=== PATIENT | female | born 1950 | race African-American/Black ===

== ENCOUNTER 2018-06-07 18:38 | Emergency (ER) | payer MEDICARE, MEDICAID ==
[~2018-06-07] VITALS: Ht 165.1 cm; Wt 68.0 kg
[~2018-06-07 18:38] MED LIST: ALBU18HF2 IH; AMLO10TA80 MT; ASA5EC MT; ATOR-2 MT; ATOR80TA PO; BIC15 PO; CHOL200010 MT; CITR473S4 PO; CLOP75TA33 PO; EMTR1TAB13 MT; HYDR-519 PO; LISI-186 PO; OLAN10TA19 MT; PREG75CA PO; ZET10 PO
[2018-06-07] MEDS ORDERED: ONDANSETRON HCL 4MG/2ML INJ IV STA (20:09)
[2018-06-07] MEDS ORDERED: MORPHINE SULFATE 4 MG/ML CPJ (NOT FOR IM USE) IV STA (20:09)
[2018-06-07] MEDS ORDERED: MORPHINE SULFATE 10 MG/ML CPJ IV STA (20:36)
[2018-06-07 21:12] LABS: BASOPHILS % 0.6 % (0.0-2.0); EOSINOPHILS % 0.5 % (0.0-5.0); HEMATOCRIT. 36.1 % (36.0-48.0); HEMOGLOBIN. 11.9 g/dL (12.0-16.0); LYMPHOCYTES % 30.9 % (20.0-50.0); MEAN CORPUSCULAR HEMOGLOBIN 32.5 pg (28.0-32.0); MEAN CORPUSCULAR VOLUME 98.9 fL (81.0-99.0); MONOCYTES % 5.3 % (2.0-8.0); NEUTROPHILS % 62.7 % (40.0-76.0); PLATELET 245 x1000/uL (130-400); RED BLOOD CELL COUNT 3.65 mill/uL (4.2-5.4); RED CELL DISTRIBUTION WIDTH 13.7 % (11.6-14.6)
[2018-06-07 21:19] LABS: CHLORIDE 109 mEq/L (98-107)
[2018-06-07] MEDS ORDERED: HYDROCODONE/ACETAMINOPHEN 10/325MG TABLET PO ONE (22:15)
[2018-06-07 23:46] VITALS: BP 155/65
== END 2018-06-07 23:46 | disposition home or self-care (01) ==
LOC: ER 18:38
DX: R51 Headache (principal); I10 Essential (primary) hypertension; J45.909 Unspecified asthma, uncomplicated; Z86.73 Personal history of transient ischemic attack (TIA), and cerebral infarction without residual deficits; Z79.899 Other long term (current) drug therapy
CPT/HCPCS: 36415; 70450; 80053; 83605; 84145; 85025; 87040; 96374; 96375; 99284; J2270; J2405

== ENCOUNTER 2018-11-02 15:09 | Emergency (ER) | payer MEDICARE, MEDICAID ==
[~2018-11-02] VITALS: Ht 162.6 cm; Wt 55.0 kg
[2018-11-02] MEDS ORDERED: SODIUM CHLORIDE 0.9% 1,000 ML IV ONE (15:19)
[2018-11-02 15:49] LABS: BASOPHILS % 1.4 % (0.0-2.0); EOSINOPHILS % 1.4 % (0.0-5.0); HEMATOCRIT. 35.2 % (36.0-48.0); HEMOGLOBIN. 11.7 g/dL (12.0-16.0); MEAN CORPUSCULAR HEMOGLOBIN 31.7 pg (28.0-32.0); MEAN CORPUSCULAR VOLUME 95.1 fL (81.0-99.0); MEAN PLATELET VOLUME 7.9 fl (7.4-10.4); MONOCYTES % 7.2 % (2.0-8.0); PLATELET 251 x1000/uL (130-400); RED CELL DISTRIBUTION WIDTH 15.5 % (11.6-14.6)
[2018-11-02 16:04] LABS: CHLORIDE 113 mEq/L (98-107)
[2018-11-02 17:38] VITALS: BP 136/80
[2018-11-02] MEDS ORDERED: ACETAMINOPHEN 500MG TABLET PO ONE (17:45)
== END 2018-11-02 18:21 | disposition home or self-care (01) ==
LOC: ER 15:09 → CANBEDREQ 17:43 → ER 18:21
DX: R51 Headache (principal); I10 Essential (primary) hypertension; E78.00 Pure hypercholesterolemia, unspecified; J45.909 Unspecified asthma, uncomplicated; Z86.73 Personal history of transient ischemic attack (TIA), and cerebral infarction without residual deficits; Z79.82 Long term (current) use of aspirin; Z79.899 Other long term (current) drug therapy
CPT/HCPCS: 36415; 70450; 71045; 80053; 83605; 83880; 84484; 85025; 85610; 93005; 99284; J7030

== ENCOUNTER 2021-02-19 02:18 | Emergency (ER) | payer MEDICARE, MEDICAID ==
[~2021-02-19] VITALS: Ht 167.6 cm; Wt 64.0 kg
[~2021-02-19 02:18] MED LIST changes: -ASA5EC MT; +ASPI-867 MT; +EZET10TA13 PO; -ZET10 PO
[2021-02-19] MEDS ORDERED: LIDOCAINE HCL/PF 1% 10 MG/ML 5ML VIAL INFIL ONE (04:15)
[2021-02-19 04:28] VITALS: BP 108/46
[2021-02-19] MEDS ORDERED: HYDROCODONE/ACETAMINOPHEN 5/325MG TABLET PO ONE (04:30)
[2021-02-19] MEDS ORDERED: LIDO30CR19 TP (05:08)
[2021-02-19] MEDS ORDERED: DOCU-138 MT (05:08)
[2021-02-19] MEDS ORDERED: HYDR26CR2 TP (05:08)
[2021-02-19] MEDS ORDERED: HYDR-4001 MT (05:09)
== END 2021-02-19 05:56 | disposition home or self-care (01) ==
LOC: ER 02:18
DX: K64.5 Perianal venous thrombosis (principal); I10 Essential (primary) hypertension; J45.909 Unspecified asthma, uncomplicated; Z79.899 Other long term (current) drug therapy; Z79.82 Long term (current) use of aspirin
CPT/HCPCS: 10060; 99283; J3490

== ENCOUNTER 2022-08-16 09:27 | Emergency (ER) | payer OTHER, MEDICAID ==
[~2022-08-16] VITALS: Ht 160 cm; Wt 73.0 kg
[~2022-08-16 09:27] MED LIST changes: +DOCU-138 MT; +HYDR-4001 MT; +HYDR26CR2 TP; +LIDO30CR19 TP; -OLAN10TA19 MT; +OLAN10TA72 MT
[2022-08-16 09:41] VITALS: BP 136/56
[2022-08-16 12:54] LABS: HEMATOCRIT. 45.1 % (36.0-48.0); HEMOGLOBIN. 15.1 g/dL (12.0-16.0); LYMPHOCYTES % 33.5 % (20.0-50.0); MEAN CORPUSCULAR HEMOGLOBIN 33.1 pg (28.0-32.0); MEAN CORPUSCULAR VOLUME 98.6 fL (81.0-99.0); MEAN PLATELET VOLUME 7.6 fl (7.4-10.4); MONOCYTES % 5.9 % (2.0-8.0); NEUTROPHILS % 58.6 % (40.0-76.0); PLATELET 252 x1000/uL (130-400); RED BLOOD CELL COUNT 4.58 mill/uL (4.2-5.4); RED CELL DISTRIBUTION WIDTH 13.4 % (11.6-14.6)
[2022-08-16 13:01] LABS: CHLORIDE 107 mEq/L (98-107)
[2022-08-16] MEDS ORDERED: ACETAMINOPHEN 325MG TABLET PO ONE (14:45)
[2022-08-16] MEDS ORDERED: CYCL5TAB MT (16:07)
[2022-08-16] MEDS ORDERED: TOPUD MT (16:07)
== END 2022-08-16 16:30 | disposition home or self-care (01) ==
LOC: ER 09:27
DX: R51.9 Headache, unspecified (principal); I10 Essential (primary) hypertension; J45.909 Unspecified asthma, uncomplicated; Z79.899 Other long term (current) drug therapy
CPT/HCPCS: 36415; 70480; 71045; 80053; 85025; 99285

== ENCOUNTER 2023-06-09 10:06 | Emergency (ER) | payer OTHER, MEDICAID ==
[~2023-06-09] VITALS: Ht 165.1 cm; Wt 60.0 kg
[~2023-06-09 10:06] MED LIST changes: +CYCL5TAB MT; -EZET10TA13 PO; +EZET10TA81 PO; +TOPUD MT
[2023-06-09 10:14] VITALS: RESP 16; O2SAT 100
[2023-06-09 11:00] VITALS: TEMP 98.9
[2023-06-09] MEDS ORDERED: ACETAMINOPHEN 325MG TABLET PO ONE (11:00)
[2023-06-09] MEDS ORDERED: CLONIDINE 0.1MG TABLET PO ONE (11:00)
[2023-06-09 12:05] VITALS: BP 188/70; PULSE 63
== END 2023-06-09 14:04 | disposition home or self-care (01) ==
LOC: ER 10:21
DX: R51.9 Headache, unspecified (principal); I10 Essential (primary) hypertension; J45.909 Unspecified asthma, uncomplicated; E78.00 Pure hypercholesterolemia, unspecified; Z79.899 Other long term (current) drug therapy; Z86.73 Personal history of transient ischemic attack (TIA), and cerebral infarction without residual deficits
CPT/HCPCS: 99284

== ENCOUNTER 2023-11-21 12:19 | Emergency (ER) | payer MEDICAID, MEDICARE, OTHER ==
[~2023-11-21] VITALS: Ht 167.6 cm; Wt 82.0 kg
[2023-11-21 13:14] VITALS: O2SAT 98
[2023-11-21] MEDS: HYDROCODONE/ACETAMINOPHEN 5/325MG TABLET PO ONE (18:05)
[2023-11-21] MEDS ORDERED: LIDO1ADH23 TP (19:20)
[2023-11-21] MEDS ORDERED: HYDR-4001 MT (19:20)
[2023-11-21 19:55] VITALS: BP 103/81; PULSE 85; RESP 18; TEMP 98.6
== END 2023-11-21 19:55 | disposition home or self-care (01) ==
LOC: ER 12:19
DX: S46.911A Strain of unspecified muscle, fascia and tendon at shoulder and upper arm level, right arm, initial encounter (principal); E78.00 Pure hypercholesterolemia, unspecified; J45.909 Unspecified asthma, uncomplicated; I10 Essential (primary) hypertension; Z86.73 Personal history of transient ischemic attack (TIA), and cerebral infarction without residual deficits; Z79.899 Other long term (current) drug therapy; X58.XXXA Exposure to other specified factors, initial encounter; Y93.89 Activity, other specified; Y92.89 Other specified places as the place of occurrence of the external cause; Y99.8 Other external cause status
CPT/HCPCS: 73030; 93971; 99284

== ENCOUNTER 2025-02-07 22:49 | Emergency (ER) | payer OTHER, MEDICAID ==
[~2025-02-07] VITALS: Ht 167.6 cm; Wt 66.0 kg
[~2025-02-07 22:49] MED LIST changes: +ATOR-388 PO; -ATOR80TA PO; -CYCL5TAB MT; +CYCL5TAB3 MT; -HYDR26CR2 TP; -LIDO30CR19 TP
[2025-02-07 23:00] VITALS: BP 100/38; PULSE 73; RESP 18; TEMP 36.7; O2SAT 95
[2025-02-08] MEDS: KETOROLAC 15MG/ML VIAL IM ONE (01:10)
[2025-02-08] MEDS ORDERED: IBUP-2028 MT (03:57)
== END 2025-02-08 04:36 | disposition home or self-care (01) ==
LOC: ER 22:49
DX: M47.816 Spondylosis without myelopathy or radiculopathy, lumbar region (principal); M54.50 Low back pain, unspecified; Z79.02 Long term (current) use of antithrombotics/antiplatelets; Z79.82 Long term (current) use of aspirin; Z79.899 Other long term (current) drug therapy; Z86.73 Personal history of transient ischemic attack (TIA), and cerebral infarction without residual deficits
CPT/HCPCS: 99285; 72131; 96372; J1885